=== PATIENT | male | born 1975 | race Caucasian/White ===

== ENCOUNTER 2018-05-18 10:42 | Emergency (ER) | payer OTHER ==
[~2018-05-18] VITALS: Ht 172.7 cm; Wt 110.2 kg
[2018-05-18 10:51] VITALS: Ht 172.7 cm; Wt 110.2 kg
[2018-05-18 12:26] VITALS: BP 170/98
== END 2018-05-18 12:26 | disposition home or self-care (01) ==
LOC: ED 10:42
DX: M19.012 Primary osteoarthritis, left shoulder (principal)

== ENCOUNTER 2018-05-26 08:48 | Emergency (ER) | payer OTHER ==
[~2018-05-26] VITALS: Ht 172.7 cm; Wt 111.1 kg
[2018-05-26 09:51] VITALS: BP 136/92
== END 2018-05-26 09:51 | disposition home or self-care (01) ==
LOC: ED 08:48
DX: M25.512 Pain in left shoulder (principal); W18.39XA Other fall on same level, initial encounter; Y93.89 Activity, other specified; Y92.89 Other specified places as the place of occurrence of the external cause; Y99.0 Civilian activity done for income or pay
CPT/HCPCS: J1885